=== PATIENT | male | born 1930 ===

== ENCOUNTER 2018-04-22 09:53 | Emergency (ER) | payer MEDICARE ==
[2018-04-22 09:55] VITALS: BMI 21.9
[2018-04-22 09:56] VITALS: O2SAT 100
[2018-04-22] MEDS ORDERED: Povidone Iodine Topical 10% Sol ONE (10:13)
--- NOTE | 2018-04-22 10:37 | ED PDOC ---
HPI: Trauma/Fall - HPI Time Seen by Provider: 04/22/18 09:58 Chief Complaint (Nursing): Trauma Chief Complaint (Provider): Trauma Onset/Duration Of Symptoms: Hrs (x4) Additional Complaint(s): Patient is an 87 y/o male with history of hyperlipidemia who presents to the ED complaining of left sided rib pain, onset earlier today after falling. Patient reports that he woke up at 06:45 to urinate and accidentally twisted wrong in the bathroom causing him to fall and hit the back of his head on a stool and injure his ribs on the left on the side. He states he was able to get up afterwards and went back to bed but he woke up with a pain in his ribs. He denies any headache, dizziness, lower back pain, shortness of breath, nausea, vomiting, abdominal pain, chest pain, incontinence, numbness or tingling, pain in extremities, or loss of consciousness. PMD: Dr. Carvajal - Fall Fall:Prior To Injury: Other (twisted ) Past Medical History Reviewed: Historical Data, Nursing Documentation, Vital Signs Vital Signs: Last Vital Signs Temp 97.7 F 04/22/18 09:55 Pulse 59 L 04/22/18 09:55 Resp 18 04/22/18 09:55 BP 138/58 L 04/22/18 09:55 Pulse Ox 100 04/22/18 09:55 - Medical History PMH: Hyperlipidemia - Surgical History Surgical History: CABG Other surgeries: CABG - Family History Family History: States: Unknown Family Hx - Living Arrangements Living Arrangements: With Family - Home Medications Home Medications: Ambulatory Orders Medication Instructions Recorded Aspirin [Aspirin Chewable] 2 tab PO DAILY 04/22/18 Simvastatin [Zocor] 40 mg PO DAILY 04/22/18 - Allergies Allergies/Adverse Reactions: Allergies Allergy/AdvReac Type Severity Reaction Status Date / Time No Known Allergies Allergy Verified 04/22/18 10:03 Review of Systems ROS Statement: Except As Marked, All Systems Reviewed And Found Negative Constitutional: Negative for: Fever Cardiovascular: Negative for: Chest Pain Gastrointestinal: Negative for: Nausea, Vomiting, Abdominal Pain Genitourinary Male: Negative for: Incontinence Musculoskeletal: Positive for: Back Pain (lower) Neurological: Negative for: Numbness, Headache, Dizziness, Other (loss of consciousness; pain in extremities) Physical Exam - Reviewed Nursing Documentation Reviewed: Yes Vital Signs Reviewed: Yes - Physical Exam Appears: Positive for: Non-toxic, No Acute Distress Head Exam: Negative for: ATRAUMATIC (posterior head with superficial vertical linear laceration, 3 cm; nontender) Skin: Positive for: Normal Color, Warm, Dry Eye Exam: Positive for: EOMI, Normal appearance, PERRL Neck: Positive for: Normal, Painless ROM, Supple Cardiovascular/Chest: Positive for: Regular Rate, Rhythm. Negative for: Chest Non Tender (mild tenderness to palpation of left lateral ribs), Murmur Respiratory: Positive for: Normal Breath Sounds. Negative for: Respiratory Distress Gastrointestinal/Abdominal: Positive for: Normal Exam, Soft. Negative for: Tenderness Back: Positive for: Other (mild tenderness to palpation left lateral upper back) . Negative for: L CVA Tenderness, R CVA Tenderness Extremity: Positive for: Normal ROM. 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 Negative for: Motor/Sensory Deficits, Aphasia, Facial Droop - ECG O2 Sat by Pulse Oximetry: 100 (RA) Pulse Ox Interpretation: Normal - Radiology X-Ray: Interpreted by Me, Viewed By Me, Read By Radiologist X-Ray Interpretation: Fracture (10th rib) - CT Scan/US ct Other Rad Studies (CT/US): Read By Radiologist Other Rad Interpretation: no acute - Progress ED Course And Treament: 1149: Stable. AAOx3. Pain controlled. Fu with pcp. in 3 days. [place] removal in 7 days. No pnuemothorax. Advised on to fly for next 10 days. Could be underlying lung contusion not seen and worsen under elevation pressure changes. Medical Decision Making Medical Decision Making: Time:10:10 Initial Impression: Left later rib pain s/p trauma Initial Plan: --Head CT w/o contrast --Tylenol 650 mg PO --RAD - thoracic spine --RAD - ribs left and PA chest ----- Scribe Attestation: Documented by Easton Bailey, acting as a scribe for Cholo Rosa MD. Provider Scribe Attestation: All medical record entries made by the Scribe were at my direction and personally dictated by me. I have reviewed the chart and agree that the record accurately reflects my personal performance of the history, physical exam, medical decision making, and the department course for this patient. I have also personally directed, reviewed, and agree with the discharge instructions and disposition. Procedures - Laceration/Wound Repair head Wound Length (cm): 3 Wound's Depth, Shape: superficial Wound Explored: clean Betadine Prep?: Yes Wound Repaired With: Bella[place] (4) Wound Complexity: Simple Sterile Dressing Applied?: Yes Progress: 500 cc salined used to irrigate wound. Tolerated well. Disposition - Clinical Impression Clinical Impression: Head injury, Laceration, Rib fracture - Patient ED Disposition Is Patient to be Admitted: Yes Counseled Patient/Family Regarding: Studies Performed, Diagnosis, Need For Followup, Rx Given - Disposition Referrals: Ray Garcia III, MD [Staff Provider] - 04/23/18 [facility] [Outside] - 04/23/18 Disposition: Routine/Home Disposition Time: 11:53 Condition: STABLE Additional Instructions: Return if not better in 3 days. Staple removal in 7 days. Do not travel in airplane for 7-10 days as underlying lung issues from fracture of the rib could be worsened under elevation pressure changes. Instructions: Rib Fracture (DC), Closed Head Injury (DC), Laceration Repair With Javier (DC) Forms: [employer] (Dominican)
--- NOTE | 2018-04-22 10:51 | CT ---
Date of service: 04/22/2018 PROCEDURE: CT HEAD WITHOUT CONTRAST. HISTORY: headache COMPARISON: None available. TECHNIQUE: Axial computed tomography images were obtained through the head/brain without intravenous contrast. Radiation dose: Total exam DLP = 806.95 mGy-cm. This CT exam was performed using one or more of the following dose reduction techniques: Automated exposure control, adjustment of the mA and/or kV according to patient size, and/or use of iterative reconstruction technique. FINDINGS: HEMORRHAGE: No intracranial hemorrhage. BRAIN: No mass effect or edema. Moderate atrophy is noted. Moderate white matter changes are also noted likely represent chronic microvascular ischemic disease. VENTRICLES: The ventricles are dilated compatible with central atrophy. The possibility of mild hydrocephalus is also not excluded. CALVARIUM: Unremarkable. PARANASAL SINUSES: Unremarkable as visualized. No significant inflammatory changes. MASTOID AIR CELLS: Opacification of the left mastoid suggestive of mastoid effusion and possible mastoiditis. OTHER FINDINGS: None. IMPRESSION: No evidence of acute intracranial hemorrhage intracranial collection mass effect or midline shift. Moderate atrophy and moderate chronic microvascular white matter ischemic disease. Left mastoid effusion suspicious for mastoiditis.
[2018-04-22 12:26] VITALS: BP 134/64; PULSE 82; RESP 13; TEMP 98
--- NOTE | 2018-04-22 12:29 | RAD ---
Date of service: 04/22/2018 PROCEDURE: Radiographs of the Chest and Left Ribs. HISTORY: pain in ribs COMPARISON: None available. TECHNIQUE: Frontal radiograph of the chest and multiple oblique radiographs of the left ribs were obtained. FINDINGS: LEFT RIBS: No fracture or focal lesion visualized. LUNGS: Clear. PLEURA: No pneumothorax or pleural fluid. CARDIOVASCULAR: Normal sized heart. No pulmonary vascular congestion. OTHER FINDINGS: None. IMPRESSION: Unremarkable radiographs of the chest and left ribs. No left rib fracture.
--- NOTE | 2018-04-22 12:30 | RAD ---
Date of service: 04/22/2018 HISTORY: Back Pain. No history of recent/ related trauma provided COMPARISON: No prior. FINDINGS: BONES: Mild scoliosis thoracolumbar spine. No fracture. DISC SPACES: Normal. SOFT TISSUES: Normal. OTHER FINDINGS: None. IMPRESSION: No significant or acute findings to account for/ related to the clinical presentation. Concordant results with the preliminary interpretation rendered by the emergency department physician procedure.
== END 2018-04-22 12:18 | disposition home or self-care (01) ==
LOC: H.ER 09:53
DX: S09.90XA Unspecified injury of head, initial encounter (principal); S22.32XA Fracture of one rib, left side, initial encounter for closed fracture; S01.91XA Laceration without foreign body of unspecified part of head, initial encounter; W19.XXXA Unspecified fall, initial encounter; Y92.002 Bathroom of unspecified non-institutional (private) residence as the place of occurrence of the external cause; E78.5 Hyperlipidemia, unspecified; Z79.82 Long term (current) use of aspirin; Z95.1 Presence of aortocoronary bypass graft

== ENCOUNTER 2018-04-29 08:18 | Emergency (ER) | payer MEDICARE ==
[2018-04-29 08:18] VITALS: BMI 21.9
[2018-04-29 08:23] VITALS: BP 139/51; PULSE 55; TEMP 97.1; O2SAT 99
[2018-04-29 08:33] VITALS: RESP 18
--- NOTE | 2018-04-29 08:47 | ED PDOC ---
HPI: Wound Care - HPI Time Seen by Provider: 04/29/18 08:29 Chief Complaint (Nursing): Suture/Staple Removal Chief Complaint (Provider): Suture/Staple Removal History Per: Patient Exam Limitations: no limitations Onset/Duration Of Symptoms: Days (x7) Current Symptoms Are (Timing): Still Present Location Of Injury: Posterior: Head Additional Complaint(s): 87 y/o male presents to the ED for staple removal status post fall 7 days ago where he sustained a head and rib injury. Approximately 4 renetta were evident on the back of the head. Patient states he has been feeling well. Patient only now complains of chest discomfort when he moves. Denies headache, dizziness, dyspnea, and weakness. PMD: Dr. Ace Carvajal Past Medical History Reviewed: Historical Data, Nursing Documentation, Vital Signs Vital Signs: Last Vital Signs Temp 97.1 F L 04/29/18 08:31 Pulse 55 L 04/29/18 08:31 Resp 18 04/29/18 08:31 BP 139/51 L 04/29/18 08:31 Pulse Ox 99 04/29/18 08:31 - Medical History PMH: Benign Prostatic Hyperplasia, Hyperlipidemia Denies: Chronic Kidney Disease - Surgical History Surgical History: CABG - Family History Family History: States: Unknown Family Hx - Social History Current smoker - smoking cessation education provided: No Alcohol: None Drugs: Denies - Immunization History Hx Tetanus Toxoid Vaccination: Yes (2015) - Home Medications Home Medications: Ambulatory Orders Medication Instructions Recorded Aspirin [Aspirin Chewable] 2 tab PO DAILY 04/22/18 Simvastatin [Zocor] 40 mg PO DAILY 04/22/18 - Allergies Allergies/Adverse Reactions: Allergies Allergy/AdvReac Type Severity Reaction Status Date / Time No Known Allergies Allergy Verified 04/29/18 08:30 Review of Systems ROS Statement: Except As Marked, All Systems Reviewed And Found Negative Constitutional: Positive for: Other (staple removal) Physical Exam - Reviewed Nursing Documentation Reviewed: Yes Vital Signs Reviewed: Yes - Physical Exam Appears: Positive for: No Acute Distress Head Exam: Positive for: NORMAL INSPECTION (Healing laceration to the posterior scalp. No bleeding. [place] are intact. No tenderness or discharge.) Neurologic/Psych: Positive for: Alert, Oriented (x3). Negative for: Motor/ Sensory Deficits - ECG O2 Sat by Pulse Oximetry: 99 (RA) Pulse Ox Interpretation: Normal Medical Decision Making Medical Decision Making: Time: 844 -- 4 renetta were removed successfully, no dehiscence. Bacitracin applied. -- Patient states he is flying to [place] next week. Provider advised patient to fly with caution. Travel is approximately 10 days from injury, likely no risk for injury or infection. -- Patient advised to follow up with primary care physician in 1-2 days without fail. Advised to take medication as prescribed. Return to the emergency room at any time for any new or worsening symptoms. -- Patient states he fully agrees with and understands discharge instructions. States that he agrees with the plan and disposition. Verbalized and repeated discharge instructions and plan. I have given the patient opportunity to ask any additional questions. Scribe Attestation: Documented by Joan Medellin acting as a scribe for Dr. Joshua Hunter III, DO. Provider Scribe Attestation: All medical record entries made by the Scribe were at my direction and personally dictated by me. I have reviewed the chart and agree that the record accurately reflects my personal performance of the history, physical exam, medical decision making, and the department course for this patient. I have also personally directed, reviewed, and agree with the discharge instructions and disposition. Disposition - Clinical Impression Clinical Impression: Removal of staple - Patient ED Disposition Is Patient to be Admitted: No - Disposition Disposition Time: 08:45 Condition: STABLE Additional Instructions: Caution with flying if having any chest discomfort, shortness of breath or headache. Use bacitracin 2x daily for 5 days to wound. Do not scrub the area. Instructions: Staple Removal
== END 2018-04-29 08:50 | disposition home or self-care (01) ==
LOC: H.ER 08:18
DX: Z48.02 Encounter for removal of sutures (principal)